=== PATIENT | female | born 1975 | race Caucasian/White ===

== ENCOUNTER 2017-06-03 09:36 | Emergency (ER) | payer BC ==
[2017-06-03 09:43] VITALS: BP 109/71
--- NOTE | 2017-06-03 14:11 | UC ---
Sergio Foster SooYoung, scribed for Tita Moreno DO on 06/03/17 at 0949 . Throat Pain/Nasal Miguel Angel HPI - HPI Summary HPI Summary: A 41 y/o F [place] [facility] throat onset yesterday. Associated sx: myalgia, chills, SANCHEZ, nausea, ear pain. Denies dysphagia, v/d, urinary symptoms, dyspnea. Has been taking Tylenol. Pt's had a positive strep test last week, and went camping with friends recently, one of whom also had positive strep test. - History of Current Complaint Chief Complaint: UCRespiratory Stated Complaint: THROAT PAIN Time Seen by Provider: 06/03/17 09:38 Hx Obtained From: Patient Hx Last Menstrual Period: 05/31/17 Onset/Duration: Gradual Onset, Lasting Hours - onset yesterday, Still Present Severity: Moderate Pain Intensity: 6 Pain Scale Used: 0-10 Numeric Associated Signs & Symptoms: Positive: Other - nausea. Negative: Dysphagia - Allergies/Home Medications Allergies/Adverse Reactions: Allergies Allergy/AdvReac Type Severity Reaction Status Date / Time Aspirin Allergy Unknown Verified 06/03/17 09:43 Reaction Details Gluten Meal Allergy Unknown Verified 06/03/17 09:43 Reaction Details Latex Allergy Unknown Verified 06/03/17 09:43 Reaction Details Penicillins Allergy Unknown Verified 06/03/17 09:43 Reaction Details Home Medications: Home Medications Sertraline* [Zoloft*] 50 mg PO DAILY 06/03/17 [History Confirmed 06/03/17] PMH/Surg Hx/FS Hx/Imm Hx Previously Healthy: Yes Cardiovascular History: Other Other Cardiovascular History: neg: HTN Respiratory History: Other Other Respiratory History: neg COPD - Surgical History Surgical History: None - Family History Known Family History: Positive: Diabetes - type II - Social History Occupation: Employed Full-time Lives: With Family Alcohol Use: None Substance Use Type: None Smoking Status (MU): Never Smoked Tobacco - Immunization History Most Recent Influenza Vaccination: 2013 Most Recent Tetanus Shot: within last 2 years Most Recent Pneumonia Vaccination: none Review of Systems Constitutional: Chills Skin: Negative Eyes: Negative ENT: Sore Throat, Ear Ache Respiratory: Negative Cardiovascular: Negative Gastrointestinal: Nausea Genitourinary: Negative Motor: Negative Neurovascular: Negative Musculoskeletal: Myalgia Neurological: Headache Psychological: Negative All Other Systems Reviewed And Are Negative: Yes Physical Exam Triage Information Reviewed: Yes Appearance: Well-Appearing, No Pain Distress, Well-Nourished Vital Signs: Initial Vital Signs Temp 98.1 F 06/03/17 09:39 Pulse 91 06/03/17 09:39 Resp 18 06/03/17 09:39 BP 109/71 06/03/17 09:39 Pulse Ox 99 06/03/17 09:39 Vital Signs Reviewed: Yes Eyes: Positive: Conjunctiva Clear. Negative: Discharge ENT: Positive: Hearing grossly normal, Pharyngeal erythema, TMs normal, Tonsillar swelling, Tonsillar exudate, Muffled/hoarse voice. Negative: Trismus Neck: Positive: Supple, Other: - pos: tender lymphadenopathy Respiratory: Positive: Lungs clear, Normal breath sounds, No respiratory distress, No accessory muscle use Cardiovascular: Positive: RRR, No Murmur Musculoskeletal Exam: Normal Neurological: Positive: Alert, Muscle Tone Normal Psychological Exam: Normal Psychological: Positive: Age Appropriate Behavior Skin Exam: Normal, Other - warm, dry, nml color Throat Pain/Nasal Course/Dx - Course Course Of Treatment: Medications reviewed this visit. Normal BP reading and no follow-up instructions required. Strep test is positive. - Differential Dx/Diagnosis Provider Diagnoses: Strep throat Discharge - Discharge Plan Condition: Stable Disposition: HOME Prescriptions: Azithromycin [Azithromycin 500 MG TAB] 500 mg PO DAILY #5 tab Patient Education Materials: Strep Throat (ED) Referrals: No Primary Care Phys,NOPCP [Primary Care Provider] - [facility] [place] [facility]FERRAL [Outside] Additional Instructions: AZITHROMYCIN: Azithromycin (Zithromax) is a broad spectrum antibiotic in the same class as erythromycin. It can treat a variety of bacterial infections, but is most frequently used for respiratory infections. Azithromycin is extremely long-lasting. It accumulates in body tissues and continues to kill bacteria for many days. In order to improve absorption, Azithromycin should be taken at least one hour before or two hours after a meal. It does not have the same strong tendency to upset the stomach as erythromycin and is usually very well tolerated. Patients who have had a rash or other true allergic reactions to erythromycin should not take this medication. Call if you develop gastrointestinal distress, severe diarrhea, rash, hives, itching, or shortness of breath. ANYTIME YOU TAKE AN ANTIBIOTIC, IT IS IMPORTANT TO REPLENISH THE BODY'S SUPPLY OF "GOOD BACTERIA." YOU CAN GET GOOD BACTERIA FROM HIGH QUALITY CULTURED FOODS SUCH LOCAL YOGURT, SOUR KRAUT, IAN JOSE ENRIQUE, NATURALLY FERMENTED PICKLES AND PROBIOTIC DRINKS. YOU CAN ALSO GET GOOD BACTERIA FROM A PROBIOTIC SUPPLEMENT. Return to Urgent Care if you have any new or worsening symptoms. You should establish with a private physician for follow-up care. If you are unable to get a timely appointment, or if you are worsening, call us or return for re-evaluation. An additional resource available to assist in finding the appropriate physician for your health care needs is the Physician Referral Center. You may contact them by calling [phone]. The documentation as recorded by the Sergio chung SooYoung accurately reflects the service I personally performed and the decisions made by me, Tita Moreno DO.
== END 2017-06-03 10:20 | disposition home or self-care (01) ==
LOC: UCEAST 09:36
DX: J02.0 Streptococcal pharyngitis (principal); Z88.0 Allergy status to penicillin; Z88.6 Allergy status to analgesic agent; Z91.040 Latex allergy status
CPT/HCPCS: 87651; 99212; G0463

== ENCOUNTER 2018-08-31 13:17 | Emergency (ER) | payer BC ==
[2018-08-31 13:24] VITALS: BP 125/82
--- NOTE | 2018-08-31 13:30 | UC ---
Complaint Female HPI - HPI Summary HPI Summary: 42 y/o female presents to the urgent care c/o frequency and burning every time she voids for the past week. Pt has been taking herbs, drinking fluids, w/o any improvement of symptoms. Pt states mild pelvic pain and pressure since this morning. Pain on urination is 4/10. Pt denies fever, flank pain, vaginal discharge, abdominal pain, N/V/D. Pt has 10 children, LMP:05/31/2018. - History Of Current Complaint Chief Complaint: UCGU Stated Complaint: PAIN/URGENCY W/ MICTURITION Time Seen by Provider: 08/31/18 13:29 Hx Obtained From: Patient Hx Last Menstrual Period: 05/31/17 ?: No Onset/Duration: Gradual Onset, Lasting Weeks - 1 week, Still Present, Worse Since - yesterday Timing: Intermittent, Lasting Seconds Severity Initially: Mild Severity Currently: Moderate Pain Intensity: 4 Pain Scale Used: 0-10 Numeric Character: Burning Aggravating Factor(s): Urination Alleviating Factor(s): Nothing Associated Signs And Symptoms: Positive: Nausea. Negative: Fever, Back Pain, Vaginal Discharge, Genital Swelling, Genital Blisters - Risk Factors Ectopic Risk Factor: Negative Ovarian Torsion Risk Factor: Negative - Allergies/Home Medications Allergies/Adverse Reactions: Allergies Allergy/AdvReac Type Severity Reaction Status Date / Time lactose Allergy Itching Verified 08/31/18 13:25 latex Allergy Rash Verified 08/31/18 13:25 Home Medications: Home Medications Ascorbic Acid/Multivit-Min [Emergen-C 1,000 mg Packet] 1 shara PO 08/31/18 [ History] Cholecalciferol TAB* [Vitamin D TAB*] 1,000 unit PO DAILY 08/31/18 [History Confirmed 08/31/18] Cranberry 400 mg PO 08/31/18 [History] Escitalopram (NF) [Lexapro 5 mg (NF)] 5 mg PO DAILY 08/31/18 [History Confirmed 08/31/18] L.acidoph,Paracasei, B.lactis [Probiotic] 1 each PO 08/31/18 [History] PMH/Surg Hx/FS Hx/Imm Hx Previously Healthy: Yes Psychological History: Anxiety, Depression - Surgical History Surgical History: Yes Surgery Procedure, Year, and Place: - Family History Known Family History: Positive: Hypertension, Diabetes - type II - Social History Occupation: Unemployed Lives: With Family Alcohol Use: Occasionally Substance Use Type: None Smoking Status (MU): Never Smoked Tobacco - Immunization History Most Recent Influenza Vaccination: had 2013 Most Recent Tetanus Shot: within last 2 years Most Recent Pneumonia Vaccination: none Review of Systems All Other Systems Reviewed And Are Negative: Yes Constitutional: Positive: Negative Skin: Positive: Negative Eyes: Positive: Negative ENT: Positive: Negative Respiratory: Positive: Negative Cardiovascular: Positive: Negative Gastrointestinal: Positive: Negative Genitourinary: Positive: Dysuria, Frequency, Urgency, Other - mild pelvic pressure Motor: Positive: Negative Neurovascular: Positive: Negative Musculoskeletal: Positive: Negative Neurological: Positive: Negative Psychological: Positive: Negative Is Patient Immunocompromised?: No Physical Exam - Summary Physical Exam Summary: VITAL SIGNS: Reviewed. GENERAL: Patient is a well developed and nourished female who is sitting comfortable in the examining table. Patient is not in any acute respiratory distress. HEAD AND FACE: No signs of trauma. No ecchymosis, hematomas or skull depressions. No sinus tenderness. EYES: PERRLA, EOMI x 2, No injected conjunctiva, clear watery eyes, no nystagmus. No photophobia. EARS: Hearing grossly intact. Ear canals and tympanic membranes are within normal limits. MOUTH: pharynx with no erythema, no exudates,no palatal petechiae. no B/L tonsillar enlargement Uvula in midline. NECK: Supple, trachea is midline, no lymphadenopathy, no JVD, no carotid bruit, no c-spine tenderness, neck with full ROM. CHEST: Symmetric, no tenderness at palpation LUNGS: Clear to auscultation bilaterally. No wheezing or crackles. CVS: Regular rate and rhythm, S1 and S2 present, no murmurs or gallops appreciated. ABDOMEN: Soft, non-tender. No signs of distention. No rebound no guarding, and no masses palpated. Bowel sounds are normal. BACK:no scoliosis or lesions, non tender to palpation, No B/L CVA tenderness EXTREMITIES: FROM in all major joints, no edema, no cyanosis or clubbing. NEURO: Alert and oriented x 3. No acute neurological deficits. Speech is normal and follows commands. SKIN: Dry and warm Triage Information Reviewed: Yes Vital Signs: Initial Vital Signs Temp 98.6 F 08/31/18 13:22 Pulse 76 08/31/18 13:22 Resp 18 08/31/18 13:22 BP 125/82 08/31/18 13:22 Pulse Ox 100 08/31/18 13:22 Complaint Female Dx - Course Course Of Treatment: 42 y/o female presents to the urgent care c/o frequency and burning every time she voids for the past week. Pt has been taking herbs, drinking fluids, w/o any improvement of symptoms. Pt states mild pelvic pain and pressure since this morning. Pain on urination is 4/10. Pt denies fever, flank pain, vaginal discharge, abdominal pain, N/V/D. Pt has 10 children, LMP:05/31/2018. Hx obtained. UA and test ordered. UA results: Blood 1+, Leukoesterase 3+. test: negative. Pt Rx Ciprofloxacin PO PO x 7 days. Pyridium 100mg PO TID x 2 days. Advised to increase fluid intake. Urine sent for culture if any abnormality Pt will be notified for further treatment. Pt advised If symptoms do not improve to return to the urgent care or f/u with PCP. Pt understood and agreed. Left the clinic ambulating. - Differential Dx/Diagnosis Differential Diagnosis/HQI/PQRI: Appendicitis, Cervicitis, Ovarian Cyst, Pelvic Inflammatory Disease, Renal Colic, Sexually Transmitted Disease, Ureteral Stone , Urinary Tract Infection Provider Diagnosis: UTI (urinary tract infection), Dysuria Discharge - Sign-Out/Discharge Documenting (check all that apply): Patient Departure - D/C home All imaging exams completed and their final reports reviewed: No Studies - Discharge Plan Condition: Stable Disposition: HOME Prescriptions: Ciprofloxacin TAB* [Cipro 500 MG TAB*] 500 mg PO BID #14 tab Phenazopyridine TAB* [Pyridium 100 mg TAB*] 100 mg PO TID #6 tab Patient Education Materials: Urinary Tract Infection in Women (ED) Referrals: Kimo Dunn MD [Primary Care Provider] - 3 Days Additional Instructions: 1- Please take Ciprofloxacin PO x 7 days. Pyridium 100 mg PO TID x 2 days to alleviate urinary symptoms. Increase increase fluid intake. drink cranberry juice. 2-Urine sent for culture if any abnormality, you will be notified for further treatment. test=negative 3-If symptoms do not improve please return to the urgent care or f/u with your PCP in 3 days for further management. - Billing Disposition and Condition Condition: STABLE Disposition: Home
--- NOTE | 2018-09-03 15:32 | UC ---
- Progress Note Progress Note: 09/03/2018 Urine culture positive for E. coli and shows sensitivity for Ciprofloxacin Pt Rx Ciprofloxacin PO No change Kylie Martinez PA-c. Course/Dx - Diagnoses Provider Diagnoses: UTI (urinary tract infection), Dysuria Discharge - Sign-Out/Discharge Documenting (check all that apply): Patient Departure - d/c home All imaging exams completed and their final reports reviewed: No Studies - Discharge Plan Condition: Stable Disposition: HOME Prescriptions: Ciprofloxacin TAB* [Cipro 500 MG TAB*] 500 mg PO BID #14 tab Phenazopyridine TAB* [Pyridium 100 mg TAB*] 100 mg PO TID #6 tab Patient Education Materials: Urinary Tract Infection in Women (ED) Referrals: Kimo Dunn MD [Primary Care Provider] - 3 Days Additional Instructions: 1- Please take Ciprofloxacin PO x 7 days. Pyridium 100 mg PO TID x 2 days to alleviate urinary symptoms. Increase increase fluid intake. drink cranberry juice. 2-Urine sent for culture if any abnormality, you will be notified for further treatment. test=negative 3-If symptoms do not improve please return to the urgent care or f/u with your PCP in 3 days for further management. - Billing Disposition and Condition Condition: STABLE Disposition: Home
== END 2018-08-31 13:55 | disposition home or self-care (01) ==
LOC: UCEAST 13:17
DX: N39.0 Urinary tract infection, site not specified (principal); R30.0 Dysuria; F41.8 Other specified anxiety disorders
CPT/HCPCS: 81003; 84702; 87077; 87086; 87186; 99212; G0463